=== PATIENT | female | born 1980 | race Native Hawaiian/Other Pacific Islander ===

== ENCOUNTER 2016-05-21 13:44 | Emergency (ER) | payer OTHER ==
[~2016-05-21] VITALS: Ht 162.6 cm; Wt 117.8 kg
[~2016-05-21 13:44] MED LIST: ALBUTEROL SULF8.5 GM IH; BENADRYL25 MG PO; LABETALOL HCL100 MG PO; NOHOMEMEDS; PRENATAL TABLE1 EAC3 PO; TUMS500 MG PO; ZANTAC150 MG PO
[2016-05-21] MEDS ORDERED: ULTRAM50 MG PO (15:02)
[2016-05-21] MEDS ORDERED: FLEXERIL10 MG PO (15:02)
[2016-05-21 16:21] VITALS: BP 131/72
== END 2016-05-21 16:21 | disposition home or self-care (01) ==
LOC: EME 13:44 → EXP 13:44
DX: M54.41 Lumbago with sciatica, right side (principal); M54.42 Lumbago with sciatica, left side; E11.9 Type 2 diabetes mellitus without complications; I10 Essential (primary) hypertension; F17.200 Nicotine dependence, unspecified, uncomplicated
CPT/HCPCS: 99281; 99284; J1100; J1885